=== PATIENT | female | born 1965 | race Caucasian/White ===

== ENCOUNTER 2016-06-27 14:32 | Day surgery (SDC) | payer OTHER ==
[~2016-06-27] VITALS: Ht 157.5 cm; Wt 63.4 kg
[2016-06-27 15:30] VITALS: Ht 157.5 cm; Wt 63.4 kg
[2016-06-27 15:43] VITALS: BP 117/70; PULSE 74; RESP 17
[2016-06-27] MEDS ORDERED: PROPOFOL 20 ML ONE (15:44)
[2016-06-27 17:00] VITALS: BP 107/64; RESP 20
--- NOTE | 2016-06-27 21:33 | OPR ---
DATE OF OPERATION: 06/27/2016 PREOPERATIVE DIAGNOSIS: Need for screening colonoscopy. POSTOPERATIVE DIAGNOSIS: Essentially normal colon. SURGEON: Catalina Cano MD ANESTHESIOLOGIST: Dr. Quijano. ANESTHESIA: MAC POSITION: Left lateral decubitus. INDICATIONS: This is a 51-year-old woman I saw in the office. Patient had never had a screening colonoscopy in the past. I discussed the risks and benefits of a screening colonoscopy, including bleeding, infection, damage to surrounding structures, and perforation. Patient agreed to the procedure and went to the GI suite. DESCRIPTION OF PROCEDURE: After obtaining consent, the patient was placed in the GI suite. After induction of sedation, patient was gently placed in the left lateral decubitus position. The pressure points were carefully padded. I began with the digital rectal exam, which was unremarkable. I then placed a lubricated Olympus colonoscope into the patient's anus and carefully navigated it to the patient's cecum. The cecum was identified by the ileocecal valve and appendiceal orifice. I then slowly retracted the scope through the entirety of the colon. The prep was good. Only findings were some very mild melanosis coli and, on retroflexion, some internal hemorrhoids. Otherwise, normal colon. The scope was then removed, and the procedure was terminated. The patient tolerated the procedure well. The patient went to the PACU in good condition. Patient to have another screening colonoscopy in 5 years. Dictated By: CATALINA ESPARZA/NTS Conf#: [id number] DID#: [id number] CC: CRYSTAL CHENG MD;*EndCC* MTDD
--- NOTE | 2016-06-28 16:20 | HP ---
Date/Time of Note Date/Time of Note DATE: 06/28/16 TIME: 16:17 Assessment/Plan VTE Prophylaxis VTE Prophylaxis Intervention: ambulation Lines/Catheters IV Catheter Type (from [facility]): Peripheral IV Assessment/Plan Chief Complaint/Hosp Course Admitted for outpt colonoscopy. Risks and benefits discussed including bleeding , infection, damage to surrounding structures, perforation Problems: HPI/ROS Admit Date/Time Admit Date/Time Hx of Present Illness Visit Date: 04/22/2016 Patient: Irina Talamantes [id number] [address] [place] [address] : 1965 Sex: Female Phones: daytime: home: Status: Complete. Visit Last Changed: 04/22/2016 11:20 AM CC / HPI: 51YO Woman h/o internal/external hemorrhoids here for f/u. Pt feels a lot better. Itching improved, no bleeding. Never had colonoscopy Current Medication: senna ROS: Constitutional: The patient denied fever and chills. Gastrointestinal: The patient denied melena, rectal bleeding, rectal itching, rectal mass and rectal pain. No other complaints PE: Constitutional general appearance overall: in no acute distress CV: RRR Pulm: CTAB Abdomen: Benign rectal exam ANOSCOPIC EXAM Grade 1 internal hemorrhoids inspection: skin tag multiple, soft palpation: a normal exam sphincter tone: a normal exam Dx: Residual hemorrhoidal skin tags First degree hemorrhoids Rx: Services Performed: Anoscopy: After performing a digital rectal examination and explaining to the patient the details of an anoscopic examination, I inserted a lubricated anoscope into the patient's anal canal. I then examined the anus and distal rectum paying particular attention to the internal hemorrhoids and skin within the anal canal. This was tolerated well. The anoscope was removed without difficulty. [id number] OFFICE/OUTPATIENT VISIT EST [id number] ANOSCOPY Calculated Complexity:None Services Ordered: Patient Referrals Related To This Visit: Abraham Bermeo M.D. Main Plan: She was given this form: 'Patient Medication Summary'. 51YO Woman h/o PA and tags. Feeling better, itch improved, no bleeding. On exam, has soft tags and grade one internal hemorrhoids. Pt due for first screening colonoscopy. Discussed risks and benefits including bleeding, infection, damage to surrounding structures, perforation. Pt agreeable, to get authorization. Pt agrees with janet. Cleo Villareal for translation. Patient Instruction: High fiber diet Hydration Get authorization for colonoscopy F/U at GI Suite Patient History As Of This Visit Medication History: senna Active Problems: First degree hemorrhoids Onset: 04/22/2016 Perianal venous thrombosis Onset: 03/06/2016 Residual hemorrhoidal skin tags Onset: 04/22/2016 Surgical: Cesarian Section Social: Tobacco history Never smoker Frequency of drinks never : Sum of all pregnancies 3 Number of deliveries after 20 weeks 3 Constitutional: no complaints PMH/Family/Social Social History Smoking Status: Never smoker Exam/Review of Systems Vital Signs Vitals Vital Signs Date Time Temp Pulse Resp B/P Pulse Ox O2 Delivery O2 Flow Rate FiO2 06/27/16 17:00 20 107/64 97 06/27/16 15:43 99.0 74 Room Air CATALINA CANO M.D. Jun 28, 2016 16:20
== END 2016-06-27 17:13 | disposition home or self-care (01) ==
LOC: GIL 14:32
PROVIDERS: ATTEND Surgery
DX: Z12.11 Encounter for screening for malignant neoplasm of colon (principal)
CPT/HCPCS: 45378; 84703; Z7610